=== PATIENT | female | born 1990 | race African-American/Black ===

== ENCOUNTER 2020-05-16 16:34 | Emergency (ER) | payer OTHER ==
[~2020-05-16] VITALS: Ht 172.7 cm; Wt 83.9 kg
[2020-05-16 16:35] VITALS: BP 107/78
[2020-05-16] MEDS ORDERED: EAR WAX REMOVAL15 ML OTIC (17:35)
[2020-05-16] MEDS ORDERED: NAPROSYN500 MG PO (17:41)
== END 2020-05-16 17:40 | disposition home or self-care (01) ==
LOC: ER 16:34
DX: H61.22 Impacted cerumen, left ear (principal)